=== PATIENT | male | born 1960 | race Hispanic/Latino ===

== ENCOUNTER → 2019-11-09 | Day surgery (SDC) | payer OTHER ==
[2019-11-01 10:42] LABS: BASOPHILS # (AUTO) 0.1 (0.0-0.1); BASOPHILS % 0.7 % (0.0-1.0); EOSINOPHILS # (AUTO) 0.1 (0.0-0.4); EOSINOPHILS % 1.5 % (0.0-6.0); HEMATOCRIT 43.1 % (38.2-49.6); HEMOGLOBIN 14.8 g/dL (14.0-18.0); LYMPHOCYTES # (AUTO) 2.1 (1.0-3.2); LYMPHOCYTES % 26.2 % (18.0-39.1); MEAN CORPUSCULAR HEMOGLOBIN 29.2 pg (28-32); MEAN CORPUSCULAR HGB CONC 34.3 g/dL (31-35); MONOCYTES # (AUTO) 0.7 (0.2-0.8); MONOCYTES % 8.6 % (4.4-11.3); NEUTROPHILS # (AUTO) 5.1 (2.1-6.9); NEUTROPHILS % 62.5 % (38.7-80.0); PLATELET COUNT 225 x10e3/uL (140-360); RED BLOOD COUNT 5.07 x10e6/uL (4.3-5.7); RED CELL DISTRIBUTION WIDTH 11.9 % (11.7-14.4)
[~2019-11-09] MED LIST: ASPIR 8181 MG PO; ATORVASTATIN CA20 MG PO; FENTANYL CITRATE/PF 100MCG/2 ML INJ ONE; HUMALOG100 UNIT/1 SQ; METFORMIN HCL500 MG PO; MIDAZOLAM HCL 2 MG/2 ML VIAL ONE; PLAVIX75 MG PO; PROPOFOL IV EMULSION 10 MG/ML 50 ML VIAL ONE
[2019-11-09 07:50] VITALS: BP 123/78
--- OUTSIDE RECORDS SUMMARY | 2019-11-17 11:15 | XMS REPORT ---
Author Author [facility] Address Unknown Phone Unavailable Care Team Providers Care Bead Inspector Name Role Phone Unavailable Unavailable Problems This patient has no known problems. Allergies, Adverse Reactions, Alerts This patient has no known allergies or adverse reactions. Medications This patient has no known medications. Results Test Description Test Time Test Comments Text Results Atomic Results Result Comments Urinalysis with Culture, if indicated 2019-07-07 04:30:27 UA Color (test code=UA Color) STRAW Yellow UA Appear (test code=UA Appear) CLEAR Clear UA pH (test code=UA pH) 6.5 UA Spec Grav (test code=UA Spec Grav) 1.006 1.001-1.035 UA Glucose (test code=UA Glucose) NEG Negative UA Bili (test code=UA Bili) NEG Negative UA Ketones (test code=UA Ketones) NEG Negative UA Blood (test code=UA Blood) NEG Negative UA Protein (test code=UA Protein) NEG Negative UA Urobilinogen (test code=UA Urobilinogen) 0.2 mg/dL UA Nitrite (test code=UA Nitrite) NEG Negative UA Leuk Est (test code=UA Leuk Est) NEG Negative UA Micro Ind? (test code=UA Micro Ind?) Not Indicated Not Indicated Result created by rule GL_SJM_UA_MICRO_IND Comprehensive Metabolic [id number] 04:00:46* Test Item Value Reference Range Comments Sodium Level (test code=Sodium Level) 140.0 mmol/L 135.0-145.0 Potassium Level (test code=Potassium Level) 4.0 mmol/L 3.5-5.1 Chloride Level (test code=Chloride Level) 101 mmol/L 98-105 CO2 (test code=CO2) 24 mmol/L 22-29 Anion Gap (test code=Anion Gap) 15 mmol/L 7-16 BUN (test code=BUN) 10.30 mg/dL 6.00-20.00 Creatinine Level (test code=Creatinine Level) 0.80 mg/dL 0.70-1.20 BUN/Creat Ratio (test code=BUN/Creat Ratio) 13 Glucose Level (test code=Glucose Level) 184 mg/dL 70-115 Calcium Level (test code=Calcium Level) 9.3 mg/dL 8.3-10.5 Alk Phos (test code=Alk Phos) 133 U/L 40-129 Bilirubin Total (test code=Bilirubin Total) 0.4 mg/dL 0.1-0.9 Albumin Level (test code=Albumin Level) 4.7 g/dL 3.5-5.2 Protein Total (test code=Protein Total) 7.2 g/dL 6.4-8.3 ALT (test code=ALT) 48 U/L 1-41 AST (test code=AST) see comment U/L 1-40 AST=22Specimen hemolyzed.ER g gabby Globulin (test code=Globulin) 2.5 g/dL 2.9-3.1 A/G Ratio (test code=A/G Ratio) 1.9 ratio Comprehensive Metabolic [id number] 04:00:46* Test Item Value Reference Range Comments Sodium Level (test code=Sodium Level) 140.0 mmol/L 135.0-145.0 Potassium Level (test code=Potassium Level) 4.0 mmol/L 3.5-5.1 Chloride Level (test code=Chloride Level) 101 mmol/L 98-105 CO2 (test code=CO2) 24 mmol/L 22-29 Anion Gap (test code=Anion Gap) 15 mmol/L 7-16 BUN (test code=BUN) 10.30 mg/dL 6.00-20.00 Creatinine Level (test code=Creatinine Level) 0.80 mg/dL 0.70-1.20 BUN/Creat Ratio (test code=BUN/Creat Ratio) 13 Glucose Level (test code=Glucose Level) 184 mg/dL 70-115 Calcium Level (test code=Calcium Level) 9.3 mg/dL 8.3-10.5 Alk Phos (test code=Alk Phos) 133 U/L 40-129 Bilirubin Total (test code=Bilirubin Total) 0.4 mg/dL 0.1-0.9 Albumin Level (test code=Albumin Level) 4.7 g/dL 3.5-5.2 Protein Total (test code=Protein Total) 7.2 g/dL 6.4-8.3 ALT (test code=ALT) 48 U/L 1-41 AST (test code=AST) see comment U/L 1-40 AST=22Specimen hemolyzed.ER g gabby Globulin (test code=Globulin) 2.5 g/dL 2.9-3.1 A/G Ratio (test code=A/G Ratio) 1.9 ratio eGFR AA (test code=eGFR AA) >60 mL/min/1.73 m2 eGFR (estimated Glomerular Filtration Rate) is an estimated value, calculated from the patient's serum creatinine using the MDRD equation. It is NOT the patient's actual GFR. The eGFR provides a more clinically useful measure of kidney disease than serum creatinine alone.This calculation takes sex and race into account, if the information is provided. If the race is not provided, and the patient is -[place], multiply by 1.212. If sex is not provided, and the patient is female, multiply by 0.742. Results for patients <18 years of age have not been validated by the MDRD study and should be interpreted with caution. eGFR Result Interpretation:eGFR > or=60 is in the Normal RangeeGFR < 60 may mean kidney diseaseeGFR < 15 may mean kidney failure Ranges recommended by the National Kidney Foundation, http://nkdep.nih.gov Comprehensive Metabolic [id number] 04:00:46* Test Item Value Reference Range Comments Sodium Level (test code=Sodium Level) 140.0 mmol/L 135.0-145.0 Potassium Level (test code=Potassium Level) 4.0 mmol/L 3.5-5.1 Chloride Level (test code=Chloride Level) 101 mmol/L 98-105 CO2 (test code=CO2) 24 mmol/L 22-29 Anion Gap (test code=Anion Gap) 15 mmol/L 7-16 BUN (test code=BUN) 10.30 mg/dL 6.00-20.00 Creatinine Level (test code=Creatinine Level) 0.80 mg/dL 0.70-1.20 BUN/Creat Ratio (test code=BUN/Creat Ratio) 13 Glucose Level (test code=Glucose Level) 184 mg/dL 70-115 Calcium Level (test code=Calcium Level) 9.3 mg/dL 8.3-10.5 Alk Phos (test code=Alk Phos) 133 U/L 40-129 Bilirubin Total (test code=Bilirubin Total) 0.4 mg/dL 0.1-0.9 Albumin Level (test code=Albumin Level) 4.7 g/dL 3.5-5.2 Protein Total (test code=Protein Total) 7.2 g/dL 6.4-8.3 ALT (test code=ALT) 48 U/L 1-41 AST (test code=AST) see comment U/L 1-40 AST=22Specimen hemolyzed.ER g gabby Globulin (test code=Globulin) 2.5 g/dL 2.9-3.1 A/G Ratio (test code=A/G Ratio) 1.9 ratio eGFR AA (test code=eGFR AA) >60 mL/min/1.73 m2 eGFR (estimated Glomerular Filtration Rate) is an estimated value, calculated from the patient's serum creatinine using the MDRD equation. It is NOT the patient's actual GFR. The eGFR provides a more clinically useful measure of kidney disease than serum creatinine alone.This calculation takes sex and race into account, if the information is provided. If the race is not provided, and the patient is -[place], multiply by 1.212. If sex is not provided, and the patient is female, multiply by 0.742. Results for patients <18 years of age have not been validated by the MDRD study and should be interpreted with caution. eGFR Result Interpretation:eGFR > or=60 is in the Normal RangeeGFR < 60 may mean kidney diseaseeGFR < 15 may mean kidney failure Ranges recommended by the National Kidney Foundation, http://nkdep.nih.gov eGFR Non-AA (test code=eGFR Non-AA) >60.00 mL/min/1.73 m2 eGFR (estimated Glomerular Filtration Rate) is an estimated value, calculated from the patient's serum creatinine using the MDRD equation. It is NOT the patient's actual GFR. The eGFR provides a more clinically useful measure of kidney disease than serum creatinine alone.This calculation takes sex and race into account, if the information is provided. If the race is not provided, and the patient is -[place]zech, multiply by 1.212. If sex is not provided, and the patient is female, multiply by 0.742. Results for patients <18 years of age have not been validated by the MDRD study and should be interpreted with caution. eGFR Result Interpretation:eGFR > or=60 is in the Normal RangeeGFR < 60 may mean kidney diseaseeGFR < 15 may mean kidney failure Ranges recommended by the National Kidney Foundation, http://nkdep.nih.gov CT Abdomen and Pelvis w/o [id number] 03:32:26Patient: REGINA REESE Date/Time07/07/2019 03:16 CDTReason for Examleft;Flank painReportExam: Stone protocol CT abdomen and pelvis.Location: H 12HISTORY: Flank pain;leftTechnique: Unenhanced spiral slices were taken from the dome of the diaphragm to the pubic symphysis. Sagittal and coronal images were obtained. One or more of the following radiation dose reduction techniques was used: Automatic exposure control, adj ustment of mA and/or KV according to the patient's size, and/or utilization of i terative reconstruction technique.Findings:No calcifications are found in either kidney, along the course of either ureter or the bladder. The kidneys are unrem arkable. No perinephric fluid collections or hydronephrosis is seen.The liver is of normal, homogeneous density. No mass is seen. The intra and extrahepatic nicholas iary tree is normal. The gallbladder has been removed.The pancreas is normal. Th e pancreatic duct is normal in caliber. The spleen and adrenal glands are normal in size and shape.The large and small intestine are normal in caliber. The appe ndix is normal. No inflammatory change is present.No lymphadenopathy or free flu id is found in the abdomen or the pelvis.The pelvic structures are unremarkable. Atherosclerosis, spondylosis and osteoarthritis are noted. The lung bases are cl ear.No incidental abdominal findings are noted.Impression:1. No acute abdominal findings.2. Status post cholecystectomy.3. Otherwise unremarkable exam. Fin al Dictated by: MD Hughes Francesco MDictated DT/TM: 07/07/2019 3:26 amSigned by: MD Hughes Francesco MSigned (Electronic Signature): 07/07/2019 3:32 amAutomated [id number] 03:03:08* Test Item Value Reference Range Comments Neutro Auto (test code=Neutro Auto) 66.7 % 36.0-70.0 Lymph Auto (test code=Lymph Auto) 22.8 % 12.0-44.0 Laurens Auto (test code=Laurens Auto) 8.0 % 0.0-11.0 Eos, Auto (test code=Eos, Auto) 1.2 % 0.0-7.0 Basophil Auto (test code=Basophil Auto) 0.9 % 0.0-2.0 Neutro Absolute (test code=Neutro Absolute) 6.2 x10 1.6-7.4 Lymph Absolute (test code=Lymph Absolute) 2.13 x10 .50-4.60 Laurens Absolute (test code=Laurens Absolute) .75 x10 .00-1.20 Eos Absolute (test code=Eos Absolute) 0.11 x10 0.00-0.74 Baso Absolute (test code=Baso Absolute) 0.08 x10 0.00-0.21 IG [id number] 03:03:08* Test Item Value Reference Range Comments IG (test code=IG) 0.4 % 0.0-5.0 IG Abs (test code=IG Abs) 0 x10 Complete Blood Count with [id number] 03:03:07* Test Item Value Reference Range Comments WBC (test code=WBC) 9.3 x10 4.4-10.5 RBC (test code=RBC) 4.73 x10 4.10-5.70 Hgb (test code=Hgb) 14.0 g/dL 13.4-17.4 Hct (test code=Hct) 40.3 % 38.7-52.0 MCV (test code=MCV) 85.20 fL 80.00-100.00 MCHC (test code=MCHC) 34.70 g/dL 32.00-37.50 MCH (test code=MCH) 29.6 pg 27.0-32.5 RDW CV (test code=RDW CV) 12.5 % 11.5-14.5 Platelets (test code=Platelets) 211.0 x10 140.0-440.0 MPV (test code=MPV) 9.7 fL Slide Review (test code=Slide Review) Auto Auto Result created by GL_SJM_SLIDE_REV_AUTO nRBC (test code=nRBC) 0 NRBC Abs (test code=NRBC Abs) 0.00 x10 IPF (test code=IPF) 0 % XR Swallowing Function w/ [id number] 12:53:20Patient: REGINA REESE Date/Time05/08/2019 11:59 CDTReason for ExamI61.8ReportEXAM: BARIUM SWALLOWCLINICAL HISTORY: StrokeTECHNIQUE: Barium swallow study was performed in conjunction with the speech pathologist.FINDINGS: There is decreased laryngeal rise with filling of the vallecula. There is significant tracheal aspiration with thin liquids during chin tuck maneuver. No aspiration is identified while the patient's head is turned to the right during small sips however aspiration was identified within a larger swallow was performed. No aspiration with thick consistencies.Fluoroscopy time: 73.0 secondsNumber Of Images: 1IMPRESSION:1. Significant aspiration with thin consistencies.2. Please see dedicated speech pathologist report for further details.LOCATION: R16 Final Dictated by: MD Henriquez Melanie CDictated DT/TM: 05/08/2019 12:40 pmSigned by: MD Henriquez Melanie CSigned (Electronic Signature): 05/08/2019 12:53 pmPOC [id number] 07:13:04* Test Item Value Reference Range Comments Glucose POC (test code=Glucose POC) 153 mg/dL 70-115 Notify RN or MDIf you consider your patient critically ill, the Na-Accu Check Infrom II meter should not be used for Glucose determination. Draw a venous Glucose and send to the main Lab for analysis. POC [id number] 20:18:05* Test Item Value Reference Range Comments Glucose POC (test code=Glucose POC) 218 mg/dL 70-115 Notify RN or MDIf you consider your patient critically ill, the Na-Accu Check Infrom II meter should not be used for Glucose determination. Draw a venous Glucose and send to the main Lab for analysis. POC [id number] 15:56:08* Test Item Value Reference Range Comments Glucose POC (test code=Glucose POC) 185 mg/dL 70-115 If you consider your patient critically ill, the An-Accu Check Infrom II meter should not be used for Glucose determination. Draw a venous Glucose and send to the main Lab for analysis. POC [id number] 11:00:32* Test Item Value Reference Range Comments Glucose POC (test code=Glucose POC) 228 mg/dL 70-115 If you consider your patient critically ill, the Na-Accu Check Infrom II meter should not be used for Glucose determination. Draw a venous Glucose and send to the main Lab for analysis. POC [id number] 07:12:30* Test Item Value Reference Range Comments Glucose POC (test code=Glucose POC) 157 mg/dL 70-115 If you consider your patient critically ill, the Na-Accu Check Infrom II meter should not be used for Glucose determination. Draw a venous Glucose and send to the main Lab for analysis. POC [id number] 19:30:57* Test Item Value Reference Range Comments Glucose POC (test code=Glucose POC) 210 mg/dL 70-115 If you consider your patient critically ill, the Na-Accu Check Infrom II meter should not be used for Glucose determination. Draw a venous Glucose and send to the main Lab for analysis. POC [id number] 16:23:05* Test Item Value Reference Range Comments Glucose POC (test code=Glucose POC) 186 mg/dL 70-115 If you consider your patient critically ill, the Na-Accu Check Infrom II meter should not be used for Glucose determination. Draw a venous Glucose and send to the main Lab for analysis. POC [id number] 11:06:00* Test Item Value Reference Range Comments Glucose POC (test code=Glucose POC) 200 mg/dL 70-115 If you consider your patient critically ill, the Na-Accu Check Infrom II meter should not be used for Glucose determination. Draw a venous Glucose and send to the main Lab for analysis. POC [id number] 08:27:31* Test Item Value Reference Range Comments Glucose POC (test code=Glucose POC) 269 mg/dL 70-115 If you consider your patient critically ill, the Na-Accu Check Infrom II meter should not be used for Glucose determination. Draw a venous Glucose and send to the main Lab for analysis. POC [id number] 20:57:58* Test Item Value Reference Range Comments Glucose POC (test code=Glucose POC) 249 mg/dL 70-115 If you consider your patient critically ill, the Na-Accu Check Infrom II meter should not be used for Glucose determination. Draw a venous Glucose and send to the main Lab for analysis. POC [id number] 18:25:58* Test Item Value Reference Range Comments Glucose POC (test code=Glucose POC) 250 mg/dL 70-115 If you consider your patient critically ill, the Na-Accu Check Infrom II meter should not be used for Glucose determination. Draw a venous Glucose and send to the main Lab for analysis. POC [id number] 13:00:54* Test Item Value Reference Range Comments Glucose POC (test code=Glucose POC) 245 mg/dL 70-115 If you consider your patient critically ill, the Na-Accu Check Infrom II meter should not be used for Glucose determination. Draw a venous Glucose and send to the main Lab for analysis. POC [id number] 08:59:01* Test Item Value Reference Range Comments Glucose POC (test code=Glucose POC) 306 mg/dL 70-115 If you consider your patient critically ill, the Na-Accu Check Infrom II meter should not be used for Glucose determination. Draw a venous Glucose and send to the main Lab for analysis. Basic Metabolic [id number] 06:06:09* Test Item Value Reference Range Comments Sodium Level (test code=Sodium Level) 135.0 mmol/L 135.0-145.0 Potassium Level (test code=Potassium Level) 3.9 mmol/L 3.5-5.1 Chloride Level (test code=Chloride Level) 100 mmol/L 98-105 CO2 (test code=CO2) 23 mmol/L 22-29 Anion Gap (test code=Anion Gap) 12 mmol/L 7-16 BUN (test code=BUN) 16.20 mg/dL 6.00-20.00 Creatinine Level (test code=Creatinine Level) 0.70 mg/dL 0.70-1.20 BUN/Creat Ratio (test code=BUN/Creat Ratio) 23 Glucose Level (test code=Glucose Level) 298 mg/dL 70-115 Calcium Level (test code=Calcium Level) 8.9 mg/dL 8.3-10.5 Basic Metabolic [id number] 06:06:09* Test Item Value Reference Range Comments Sodium Level (test code=Sodium Level) 135.0 mmol/L 135.0-145.0 Potassium Level (test code=Potassium Level) 3.9 mmol/L 3.5-5.1 Chloride Level (test code=Chloride Level) 100 mmol/L 98-105 CO2 (test code=CO2) 23 mmol/L 22-29 Anion Gap (test code=Anion Gap) 12 mmol/L 7-16 BUN (test code=BUN) 16.20 mg/dL 6.00-20.00 Creatinine Level (test code=Creatinine Level) 0.70 mg/dL 0.70-1.20 BUN/Creat Ratio (test code=BUN/Creat Ratio) 23 Glucose Level (test code=Glucose Level) 298 mg/dL 70-115 Calcium Level (test code=Calcium Level) 8.9 mg/dL 8.3-10.5 eGFR AA (test code=eGFR AA) >60 mL/min/1.73 m2 eGFR (estimated Glomerular Filtration Rate) is an estimated value, calculated from the patient's serum creatinine using the MDRD equation. It is NOT the patient's actual GFR. The eGFR provides a more clinically useful measure of kidney disease than serum creatinine alone.This calculation takes sex and race into account, if the information is provided. If the race is not provided, and the patient is -[place], multiply by 1.212. If sex is not provided, and the patient is female, multiply by 0.742. Results for patients <18 years of age have not been validated by the MDRD study and should be interpreted with caution. eGFR Result Interpretation:eGFR > or=60 is in the Normal RangeeGFR < 60 may mean kidney diseaseeGFR < 15 may mean kidney failure Ranges recommended by the National Kidney Foundation, http://nkdep.nih.gov Basic Metabolic [id number] 06:06:09* Test Item Value Reference Range Comments Sodium Level (test code=Sodium Level) 135.0 mmol/L 135.0-145.0 Potassium Level (test code=Potassium Level) 3.9 mmol/L 3.5-5.1 Chloride Level (test code=Chloride Level) 100 mmol/L 98-105 CO2 (test code=CO2) 23 mmol/L 22-29 Anion Gap (test code=Anion Gap) 12 mmol/L 7-16 BUN (test code=BUN) 16.20 mg/dL 6.00-20.00 Creatinine Level (test code=Creatinine Level) 0.70 mg/dL 0.70-1.20 BUN/Creat Ratio (test code=BUN/Creat Ratio) 23 Glucose Level (test code=Glucose Level) 298 mg/dL 70-115 Calcium Level (test code=Calcium Level) 8.9 mg/dL 8.3-10.5 eGFR AA (test code=eGFR AA) >60 mL/min/1.73 m2 eGFR (estimated Glomerular Filtration Rate) is an estimated value, calculated from the patient's serum creatinine using the MDRD equation. It is NOT the patient's actual GFR. The eGFR provides a more clinically useful measure of kidney disease than serum creatinine alone.This calculation takes sex and race into account, if the information is provided. If the race is not provided, and the patient is -[place], multiply by 1.212. If sex is not provided, and the patient is female, multiply by 0.742. Results for patients <18 years of age have not been validated by the MDRD study and should be interpreted with caution. eGFR Result Interpretation:eGFR > or=60 is in the Normal RangeeGFR < 60 may mean kidney diseaseeGFR < 15 may mean kidney failure Ranges recommended by the National Kidney Foundation, http://nkdep.nih.gov eGFR Non-AA (test code=eGFR Non-AA) >60.00 mL/min/1.73 m2 eGFR (estimated Glomerular Filtration Rate) is an estimated value, calculated from the patient's serum creatinine using the MDRD equation. It is NOT the patient's actual GFR. The eGFR provides a more clinically useful measure of kidney disease than serum creatinine alone.This calculation takes sex and race into account, if the information is provided. If the race is not provided, and the patient is -[place]zech, multiply by 1.212. If sex is not provided, and the patient is female, multiply by 0.742. Results for patients <18 years of age have not been validated by the MDRD study and should be interpreted with caution. eGFR Result Interpretation:eGFR > or=60 is in the Normal RangeeGFR < 60 may mean kidney diseaseeGFR < 15 may mean kidney failure Ranges recommended by the National Kidney Foundation, http://nkdep.nih.gov Hemoglobin [id number] 05:59:02* Test Item Value Reference Range Comments Hemoglobin A1c (test code=Hemoglobin A1c) 10.5 % 4.8-5.9 Non Diabetic 4.8-5.9%Diabetic <7.0% Complete Blood Count without [id number] 05:59:01* Test Item Value Reference Range Comments WBC (test code=WBC) 8.1 x10 4.4-10.5 RBC (test code=RBC) 5.27 x10 4.10-5.70 Hgb (test code=Hgb) 15.1 g/dL 13.4-17.4 Hct (test code=Hct) 44.9 % 38.7-52.0 MCV (test code=MCV) 85.20 fL 80.00-100.00 MCH (test code=MCH) 28.7 pg 27.0-32.5 MCHC (test code=MCHC) 33.60 g/dL 32.00-37.50 RDW CV (test code=RDW CV) 12.6 % 11.5-14.5 Platelets (test code=Platelets) 179.0 x10 140.0-440.0 MPV (test code=MPV) 10.4 fL nRBC (test code=nRBC) 0 NRBC Abs (test code=NRBC Abs) 0.00 x10 IPF (test code=IPF) 0 % Prothrombin Time and [id number] 05:55:09* Test Item Value Reference Range Comments Prothrombin Time (test code=Prothrombin Time) 11.8 seconds 9.8-13.4 INR (test code=INR) 1.0 ratio 0.6-1.2 POC [id number] 21:24:29* Test Item Value Reference Range Comments Glucose POC (test code=Glucose POC) 269 mg/dL 70-115 If you consider your patient critically ill, the Na-Accu Check Infrom II meter should not be used for Glucose determination. Draw a venous Glucose and send to the main Lab for analysis. POC [id number] 17:52:01* Test Item Value Reference Range Comments Glucose POC (test code=Glucose POC) 269 mg/dL 70-115 If you consider your patient critically ill, the Na-Accu Check Infrom II meter should not be used for Glucose determination. Draw a venous Glucose and send to the main Lab for analysis. MRI Brain w/o [id number] 16:24:19Patient: REGINA REESE Date/Time04/16/2019 15:40 CDTReason for ExamStroke;WeaknessReportEXAM: MRI Brain w/o ContrastHISTORY: Weakness;StrokeTECHNIQUE: Multiplanar multisequence MR images of the brain were obtained without intravenous contrast.COMPARISON: CT brain same dayFINDINGS:There is no intracranial hemorrhage, mass or mass effect. The ventricular system and sulci are age-appropriate. Acute focal infarct in the l eft hemipons.Mild periventricular and scattered white matter T2 hyperintensity i n keeping with chronic microangiopathic disease.Appropriate flow-voids are prese nt at the skull base. 1.2 cm retention polyp in the right maxillary sinus.IMPRES ANILA:Acute focal infarct in the left hemipons.Mild chronic microangiopathic dise ase. Final Dictated by: MD Vitale Haider ADictated DT/TM: 019 4:17 pmSigned by: MD Vitale Haider ASigned (Electronic Signature): 04/16 4:24 pmLipid [id number] 06:52:53* Test Item Value Reference Range Comments Cholesterol Total (test code=Cholesterol Total) 211 mg/dL 0-200 RISK OF HEART DISEASEPublished by [place] Heart Association Analyte Optimal Borderline Increased RiskCHOL <200 200-239 >240TRIG <150 150-199 >200HDL Male >60 <40HDL Female >60 <50LDL <100 130-159 >160LDL Near optimal is 100-129 Triglycerides (test code=Triglycerides) 301 mg/dL 9-200 HDL (test code=HDL) 32 mg/dL 40-60 LDL (test code=LDL) 119 mg/dL 0-130 The equation being used in this calculation is LDL=(Chol - HDL) - (Trig / 5) VLDL (test code=VLDL) 60 mg/dL 5-40 The equation being used in this calculation is VLDL=Trig / 5 Chol/HDL (test code=Chol/HDL) 6.6 ratio 0.0-5.0 LDL/HDL Ratio (test code=LDL/HDL Ratio) 4 The equation being used in this calculation is LDL/HDL Ratio=LDL Calc/HDL Chol Urinalysis with Microscopic if [id number] 06:50:16* Test Item Value Reference Range Comments UA Color (test code=UA Color) YELLO Yellow UA Appear (test code=UA Appear) CLEAR Clear UA pH (test code=UA pH) 8 UA Spec Grav (test code=UA Spec Grav) 1.011 1.001-1.035 UA Glucose (test code=UA Glucose) 1000 mg/dL Negative UA Ketones (test code=UA Ketones) NEG Negative UA Blood (test code=UA Blood) NEG Negative UA Protein (test code=UA Protein) 25 mg/dL Negative UA Bili (test code=UA Bili) NEG Negative UA Urobilinogen (test code=UA Urobilinogen) 0.2 mg/dL UA Nitrite (test code=UA Nitrite) NEG Negative UA Leuk Est (test code=UA Leuk Est) 25 cells/mcL Negative UA Micro Ind? (test code=UA Micro Ind?) Indicated Not Indicated Result created by rule GL_SJM_UA_MICRO_IND Drugs of Abuse Urine [id number] 06:49:10* Test Item Value Reference Range Comments Amphetamine Screen Ur (test code=Amphetamine Screen Ur) Negative Negative For diagnostic purposes only. Positive results should always be assessed in conjunction with a patient's medical history. Barbiturate Screen Ur (test code=Barbiturate Screen Ur) Negative Negative Benzodiazepines Ur (test code=Benzodiazepines Ur) Negative Negative Cocaine Screen Ur (test code=Cocaine Screen Ur) Negative Negative U Methadone (test code=U Methadone) Negative Negative Opiate Screen Ur (test code=Opiate Screen Ur) Negative Negative U PCP Scrn (test code=U PCP Scrn) Negative Negative U Propoxyphene (test code=U Propoxyphene) Negative Negative Cannabinoid Screen Ur (test code=Cannabinoid Screen Ur) Negative Negative Urinalysis [id number] 06:47:32* Test Item Value Reference Range Comments UA WBC (test code=UA WBC) 6-10 0-5 UA RBC (test code=UA RBC) None Seen 0-5 CT Angio Brain and [id number] 06:26:53Patient: REGINA REESE Date/Time04/16/2019 05:52 CDTReason for ExamStrokeReportHISTORY: Male, 58 years of age with StrokeLocation code: [id number]: CT ANGIOGRAPHY OF THE NECK AND [place] OF WILLISCOMPARISON: CT brain performed immediately priorTECHNIQUE: Helical axial images were obtained from aortic arch to top of calvarium with IV contrast using the CT angiography protocol. 100 mL nonionic IV contrast was administered. Image post processing with MIP and multiplanar reconstruction were done at the advanced workstation. One or more of the following dose reduction techniques were used: Automated exposure control, adjustment of the mA and/or kV according to patient size, and/or utilization of iterative reconstruction technique.FINDINGS: Minor calcified plaque seen in the aortic arch. No significant plaquing or stenosis in right brachiocephalic artery, right subclavian or left subclavian artery. Vertebral arteries are patent and codominant. No vertebral artery stenosis or dissection.Right carotid system: There is only minor calcified plaque in the r ight proximal ICA. No significant right CCA, ECA or ICA stenosis.Left carotid sy stem: No significant plaquing or stenosis in the right CCA, ECA, or ICA.Intracra nial circulation: No large vessel occlusion, critical stenosis, or aneurysm in t he intracranial arteries. Appropriate dural vein enhancement is seen.Other: Muco us retention cyst seen in the right maxillary sinus. Images through pulmonary ap ices are unremarkable.IMPRESSION:1. No significant carotid or vertebral artery s tenosis in the neck.2. Intracranially no large vessel occlusion, critical stenos is, or aneurysm detected.NOTE: Stenosis derived by comparing the narrowest segme nt with the distal luminal diameter as related to the reported measure of arteri al narrowing (criteria similar to NASCET). Final Dictated by: Rosina Hooper LDictated DT/TM: 04/16/2019 6:21 amSigned by: Rosina Hooper LSigned (Dorothea ctronic Signature): 04/16/2019 6:26 amComprehensive Metabolic [id number] 05:28:45* Test Item Value Reference Range Comments Sodium Level (test code=Sodium Level) 139.0 mmol/L 135.0-145.0 Potassium Level (test code=Potassium Level) 3.6 mmol/L 3.5-5.1 Chloride Level (test code=Chloride Level) 103 mmol/L 98-105 CO2 (test code=CO2) 23 mmol/L 22-29 Anion Gap (test code=Anion Gap) 13 mmol/L 7-16 BUN (test code=BUN) 9.80 mg/dL 6.00-20.00 Creatinine Level (test code=Creatinine Level) 0.70 mg/dL 0.70-1.20 BUN/Creat Ratio (test code=BUN/Creat Ratio) 14 Glucose Level (test code=Glucose Level) 184 mg/dL 70-115 Calcium Level (test code=Calcium Level) 9.4 mg/dL 8.3-10.5 Alk Phos (test code=Alk Phos) 134 U/L 40-129 Bilirubin Total (test code=Bilirubin Total) 0.6 mg/dL 0.1-0.9 Albumin Level (test code=Albumin Level) 4.7 g/dL 3.5-5.2 Protein Total (test code=Protein Total) 7.7 g/dL 6.4-8.3 ALT (test code=ALT) 24 U/L 1-41 AST (test code=AST) 15 U/L 1-40 Globulin (test code=Globulin) 3.0 g/dL 2.9-3.1 A/G Ratio (test code=A/G Ratio) 1.6 ratio Creatine [id number] 05:28:45* Test Item Value Reference Range Comments CK (test code=CK) 90 U/L 39-308 Comprehensive Metabolic [id number] 05:28:45* Test Item Value Reference Range Comments Sodium Level (test code=Sodium Level) 139.0 mmol/L 135.0-145.0 Potassium Level (test code=Potassium Level) 3.6 mmol/L 3.5-5.1 Chloride Level (test code=Chloride Level) 103 mmol/L 98-105 CO2 (test code=CO2) 23 mmol/L 22-29 Anion Gap (test code=Anion Gap) 13 mmol/L 7-16 BUN (test code=BUN) 9.80 mg/dL 6.00-20.00 Creatinine Level (test code=Creatinine Level) 0.70 mg/dL 0.70-1.20 BUN/Creat Ratio (test code=BUN/Creat Ratio) 14 Glucose Level (test code=Glucose Level) 184 mg/dL 70-115 Calcium Level (test code=Calcium Level) 9.4 mg/dL 8.3-10.5 Alk Phos (test code=Alk Phos) 134 U/L 40-129 Bilirubin Total (test code=Bilirubin Total) 0.6 mg/dL 0.1-0.9 Albumin Level (test code=Albumin Level) 4.7 g/dL 3.5-5.2 Protein Total (test code=Protein Total) 7.7 g/dL 6.4-8.3 ALT (test code=ALT) 24 U/L 1-41 AST (test code=AST) 15 U/L 1-40 Globulin (test code=Globulin) 3.0 g/dL 2.9-3.1 A/G Ratio (test code=A/G Ratio) 1.6 ratio eGFR AA (test code=eGFR AA) >60 mL/min/1.73 m2 eGFR (estimated Glomerular Filtration Rate) is an estimated value, calculated from the patient's serum creatinine using the MDRD equation. It is NOT the patient's actual GFR. The eGFR provides a more clinically useful measure of kidney disease than serum creatinine alone.This calculation takes sex and race into account, if the information is provided. If the race is not provided, and the patient is -[place], multiply by 1.212. If sex is not provided, and the patient is female, multiply by 0.742. Results for patients <18 years of age have not been validated by the MDRD study and should be interpreted with caution. eGFR Result Interpretation:eGFR > or=60 is in the Normal RangeeGFR < 60 may mean kidney diseaseeGFR < 15 may mean kidney failure Ranges recommended by the National Kidney Foundation, http://nkdep.nih.gov Pro B Natriuretic [id number] 05:28:45* Test Item Value Reference Range Comments NT-proBNP (test code=NT-proBNP) 20 pg/mL 0-124 Troponin [id number] 05:28:45* Test Item Value Reference Range Comments Troponin-T (test code=Troponin-T) <0.010 ng/mL 0.000-0.009 within normal rangeThe 99th percentile URL for the assay is< 0.01ng/ml. A rise and fall in MALENA with at least one value above the 99th percentile with clinical evidence of myocardial ischemia would support the diagnosis of AMI. A delta of at least 20% is recommended to access acute changes in results above the 99th percentile in serial measurements. Stable MALENA levels (<20% delta) above the 99th percentile URL would support a diagnosis of chronic myocardial injury.<0.01 ng/ml - No evidence of Myocardial Injury > or equal to 0.01 ng/ml - Suspected Myocardial Injury Comprehensive Metabolic [id number] 05:28:45* Test Item Value Reference Range Comments Sodium Level (test code=Sodium Level) 139.0 mmol/L 135.0-145.0 Potassium Level (test code=Potassium Level) 3.6 mmol/L 3.5-5.1 Chloride Level (test code=Chloride Level) 103 mmol/L 98-105 CO2 (test code=CO2) 23 mmol/L 22-29 Anion Gap (test code=Anion Gap) 13 mmol/L 7-16 BUN (test code=BUN) 9.80 mg/dL 6.00-20.00 Creatinine Level (test code=Creatinine Level) 0.70 mg/dL 0.70-1.20 BUN/Creat Ratio (test code=BUN/Creat Ratio) 14 Glucose Level (test code=Glucose Level) 184 mg/dL 70-115 Calcium Level (test code=Calcium Level) 9.4 mg/dL 8.3-10.5 Alk Phos (test code=Alk Phos) 134 U/L 40-129 Bilirubin Total (test code=Bilirubin Total) 0.6 mg/dL 0.1-0.9 Albumin Level (test code=Albumin Level) 4.7 g/dL 3.5-5.2 Protein Total (test code=Protein Total) 7.7 g/dL 6.4-8.3 ALT (test code=ALT) 24 U/L 1-41 AST (test code=AST) 15 U/L 1-40 Globulin (test code=Globulin) 3.0 g/dL 2.9-3.1 A/G Ratio (test code=A/G Ratio) 1.6 ratio eGFR AA (test code=eGFR AA) >60 mL/min/1.73 m2 eGFR (estimated Glomerular Filtration Rate) is an estimated value, calculated from the patient's serum creatinine using the MDRD equation. It is NOT the patient's actual GFR. The eGFR provides a more clinically useful measure of kidney disease than serum creatinine alone.This calculation takes sex and race into account, if the information is provided. If the race is not provided, and the patient is -[place], multiply by 1.212. If sex is not provided, and the patient is female, multiply by 0.742. Results for patients <18 years of age have not been validated by the MDRD study and should be interpreted with caution. eGFR Result Interpretation:eGFR > or=60 is in the Normal RangeeGFR < 60 may mean kidney diseaseeGFR < 15 may mean kidney failure Ranges recommended by the National Kidney Foundation, http://nkdep.nih.gov eGFR Non-AA (test code=eGFR Non-AA) >60.00 mL/min/1.73 m2 eGFR (estimated Glomerular Filtration Rate) is an estimated value, calculated from the patient's serum creatinine using the MDRD equation. It is NOT the patient's actual GFR. The eGFR provides a more clinically useful measure of kidney disease than serum creatinine alone.This calculation takes sex and race into account, if the information is provided. If the race is not provided, and the patient is -[place], multiply by 1.212. If sex is not provided, and the patient is female, multiply by 0.742. Results for patients <18 years of age have not been validated by the MDRD study and should be interpreted with caution. eGFR Result Interpretation:eGFR > or=60 is in the Normal RangeeGFR < 60 may mean kidney diseaseeGFR < 15 may mean kidney failure Ranges recommended by the National Kidney Foundation, http://nkdep.nih.gov Partial Thromboplastin [id number] 05:24:53* Test Item Value Reference Range Comments Partial Thromboplastin Time (test code=Partial Thromboplastin Time) 27.90 seconds 24.39-37.25 Prothrombin Time and [id number] 05:24:52* Test Item Value Reference Range Comments Prothrombin Time (test code=Prothrombin Time) 11.0 seconds 9.8-13.4 INR (test code=INR) 1.0 ratio 0.6-1.2 XR Chest 1 View [id number] 05:21:28Patient: REGINA REESE Date/Time04/16/2019 04:57 CDTReason for ExamCHF (Congestive Heart Failure), knownReportHISTORY: Male, 58 years of age with CHF (Congestive Heart Failure), knownLocation code: [id number]: CHEST X- RAY, ONE VIEWCOMPARISON: NoneCOMMENT: Frontal view of the chest is provided. No focal infiltrate, consolidation, mass lesion, or effusion is seen. Cardiac silhouette is within normal limits. No acute bony abnormalities.IMPRESSION: No acute disease. Final Dictated by: Rosina Hooper LDictated DT/TM: 04/16/2019 5:21 amSigned by: Rosina Hooper LSigned (Electronic Signature): 04/16/2019 5:21 amCT Brain/Head w/o [id number] 05:20:53Patient: REGINA REESE Date/Time04/16/2019 04:52 CDTReason for ExamAltered level of consciousnessRepo rtHISTORY: Male, 58 years of age with Altered level of consciousnessLocation c ode: [id number]: CT BRAIN WITHOUT CONTRASTCOMPARISON: None.TECHNIQUE: Helical axia l images were obtained through the brain without IV contrast. Coronal and sagitt al reformats were performed. One or more of the following dose reduction techniq ues were used: Automated exposure control, adjustment of the mA and/or kV accord ing to patient size, and/or utilization of iterative reconstruction technique.FI NDINGS: There is no acute intra-axial or extra-axial hemorrhage, mass, mass effe ct or midline shift. No acute loss of the cortical gaitan/white junctions. No hydr ocephalus. There is no acute calvarial fracture. The sinuses and mastoids are c lear.IMPRESSION: Unremarkable CT brain without IV contrast.Findings conveyed to Dr. Jacobo by Ginger Allen of call service at 5:15 AM.A Critical Direct Comm unication message has been discussed with Torito Jacobo in the [employer] | Critical Result system on 04/16/2019 5:15 AM, Message ID [id number]. Final Dictated by: Rosina Hooper LDictated DT/TM: 04/16/2019 5:12 amSigned by: Rosina Kingston LSigned (Electronic Signature): 04/16/2019 5:20 amComplete Blood Count with [id number] 05:04:07* Test Item Value Reference Range Comments WBC (test code=WBC) 10.7 x10 4.4-10.5 RBC (test code=RBC) 5.67 x10 4.10-5.70 Hgb (test code=Hgb) 16.1 g/dL 13.4-17.4 Hct (test code=Hct) 48.0 % 38.7-52.0 MCV (test code=MCV) 84.70 fL 80.00-100.00 MCHC (test code=MCHC) 33.50 g/dL 32.00-37.50 RDW CV (test code=RDW CV) 12.7 % 11.5-14.5 MCH (test code=MCH) 28.4 pg 27.0-32.5 Platelets (test code=Platelets) 197.0 x10 140.0-440.0 MPV (test code=MPV) 10.1 fL Slide Review (test code=Slide Review) Auto Auto Result created by [email or web address] nRBC (test code=nRBC) 0 NRBC Abs (test code=NRBC Abs) 0.00 x10 IPF (test code=IPF) 0 % Automated [id number] 05:04:07* Test Item Value Reference Range Comments Neutro Auto (test code=Neutro Auto) 60.1 % 36.0-70.0 Lymph Auto (test code=Lymph Auto) 30.0 % 12.0-44.0 Laurens Auto (test code=Laurens Auto) 7.2 % 0.0-11.0 Eos, Auto (test code=Eos, Auto) 1.7 % 0.0-7.0 Basophil Auto (test code=Basophil Auto) 0.7 % 0.0-2.0 Neutro Absolute (test code=Neutro Absolute) 6.5 x10 1.6-7.4 Lymph Absolute (test code=Lymph Absolute) 3.22 x10 .50-4.60 Laurens Absolute (test code=Laurens Absolute) .77 x10 .00-1.20 Eos Absolute (test code=Eos Absolute) 0.18 x10 0.00-0.74 Baso Absolute (test code=Baso Absolute) 0.07 x10 0.00-0.21 IG [id number] 05:04:07* Test Item Value Reference Range Comments IG (test code=IG) 0.3 % 0.0-5.0 IG Abs (test code=IG Abs) 0 x10"
== END | disposition home or self-care (01) ==
LOC: OR 05:24
PROVIDERS: ATTEND Internal Medicine Gastroenterology
DX: K29.70 Gastritis, unspecified, without bleeding (principal); D12.3 Benign neoplasm of transverse colon; K64.8 Other hemorrhoids; Z71.3 Dietary counseling and surveillance; E11.9 Type 2 diabetes mellitus without complications; I10 Essential (primary) hypertension; Z01.810 Encounter for preprocedural cardiovascular examination; Z01.812 Encounter for preprocedural laboratory examination; Z79.84 Long term (current) use of oral hypoglycemic drugs; Z79.02 Long term (current) use of antithrombotics/antiplatelets; Z79.82 Long term (current) use of aspirin; Z79.4 Long term (current) use of insulin; Z68.22 Body mass index [BMI] 22.0-22.9, adult; Z86.73 Personal history of transient ischemic attack (TIA), and cerebral infarction without residual deficits
CPT/HCPCS: 36415 ×2; 43239; 45385; 82948; 85025; 93005; J2250; J2704; J3010; 45378